=== PATIENT | female | born 1945 | race Caucasian/White ===

== ENCOUNTER 2017-02-26 16:22 | Emergency (ER) | payer MEDICARE, MEDICAID ==
[~2017-02-26] VITALS: Ht 157.5 cm; Wt 65.8 kg
[2017-02-26 16:27] VITALS: BP 139/91
--- NOTE | 2017-02-26 16:27 | NUR ---
LEFT SIDE FLANK PAIN, DIZZYNESS, BURNUNING ON URINATION x 4 DAYS
--- NOTE | 2017-02-26 16:41 | NUR ---
URINE SAMPLE COLLECTED SENT TO LAB
[2017-02-26 16:52] LABS: APPEARANCE,URINE CLEAR (CLEAR); BILIRUBIN,URINE NEGATIVE (NEGATIVE); BLOOD, URINE 1+ Ery/uL (NEGATIVE); COLOR,URINE YELLOW (YELLOW); KETONES,URINE NEGATIVE (NEGATIVE); LEUKOCYTE ESTERASE ,URINE NEGATIVE (NEGATIVE); NITRITE, URINE NEGATIVE (NEGATIVE); PH,URINE 5.5 (5.0-8.0); PROTEIN,URINE NEGATIVE (NEGATIVE); UGLUCOSE NEGATIVE (NEGATIVE); UROBILINOGEN,URINE 0.2 EU/dL (0.2)
[2017-02-26 17:03] LABS: BACTERIA,URINE Few /HPF (None Seen); SQUAMOUS EPITHELIAL CELL,UR Few /HPF (None Seen); WBC,URINE 0-2 /HPF (0-3)
[2017-02-26] MEDS ORDERED: CIPROFLOXACIN HCL 500 MG TABLET ONE (17:14)
[2017-02-26] MEDS ORDERED: IBUPROFEN 400 MG TABLET ONE (17:14)
[2017-02-26] MEDS ORDERED: CIPROFLOXACIN HCL 500 MG TABLET PO ONE (17:30)
[2017-02-26] MEDS ORDERED: IBUPROFEN 400 MG TABLET PO ONE (17:30)
== END 2017-02-26 17:16 | disposition home or self-care (01) ==
LOC: ER 16:24
DX: N39.0 Urinary tract infection, site not specified (principal); I10 Essential (primary) hypertension; F32.9 Major depressive disorder, single episode, unspecified; E03.9 Hypothyroidism, unspecified
CPT/HCPCS: 81001; 87086; 99284; A4606; 81000-TC; Z7610

== ENCOUNTER 2017-12-03 08:02 | Emergency (ER) | payer MEDICARE, MEDICAID ==
[~2017-12-03] VITALS: Ht 157.5 cm; Wt 67.6 kg
[2017-12-03 08:08] VITALS: BP 140/83
[2017-12-03] MEDS ORDERED: KETOROLAC TROMETHAMINE INJ 30 MG/ML VIAL ONE (10:12)
[2017-12-03] MEDS ORDERED: KETOROLAC TROMETHAMINE INJ 60 MG/2 ML VIAL IM ONE (10:30)
== END 2017-12-03 10:37 | disposition home or self-care (01) ==
LOC: ER 08:04
DX: M75.92 Shoulder lesion, unspecified, left shoulder (principal); F32.9 Major depressive disorder, single episode, unspecified; E03.9 Hypothyroidism, unspecified; Z98.890 Other specified postprocedural states
CPT/HCPCS: 73030; 96372; 99284; A4606; J1885; Z7610

== ENCOUNTER 2017-12-22 23:33 | Emergency (ER) | payer MEDICARE, MEDICAID ==
[~2017-12-22] VITALS: Ht 157.5 cm; Wt 65.8 kg
[2017-12-22 23:55] VITALS: BP 155/96
--- NOTE | 2017-12-23 00:30 | NUR ---
Patient given prescription for ibuprofen along w/ referrals for orthopaedics, PT rehab and discharge instructions. Patient refusing to sign discharge papers.
[2017-12-23] MEDS ORDERED: KETOROLAC TROMETHAMINE INJ 30 MG/ML VIAL ONE (00:54)
[2017-12-23] MEDS: KETOROLAC TROMETHAMINE INJ 60 MG/2 ML VIAL IM ONE ×2 (01:05→01:23)
== END 2017-12-23 00:34 | disposition home or self-care (01) ==
LOC: ER 23:35
DX: G89.29 Other chronic pain (principal); F32.9 Major depressive disorder, single episode, unspecified; E03.9 Hypothyroidism, unspecified
CPT/HCPCS: 96372; 99283; A4606; J1885; Z7610

== ENCOUNTER 2018-12-27 17:46 | Emergency (ER) | payer MEDICARE, MEDICAID ==
[~2018-12-27] VITALS: Ht 157.5 cm; Wt 68.0 kg
[2018-12-27 17:52] VITALS: BP 125/69
== END 2018-12-27 18:57 | disposition home or self-care (01) ==
LOC: ER 17:46
DX: S90.111A Contusion of right great toe without damage to nail, initial encounter (principal); F32.9 Major depressive disorder, single episode, unspecified; E03.9 Hypothyroidism, unspecified; Z98.890 Other specified postprocedural states; W20.8XXA Other cause of strike by thrown, projected or falling object, initial encounter; Y93.89 Activity, other specified; Y92.89 Other specified places as the place of occurrence of the external cause; Y99.8 Other external cause status
CPT/HCPCS: 73660-TC

== ENCOUNTER 2022-07-19 14:29 | Inpatient (IN) | payer MEDICARE, OTHER ==
[~2022-07-19] VITALS: Ht 157.5 cm; Wt 69.9 kg
--- NOTE | 2022-07-19 14:29 | NUR ---
BIB SELF FOR C/C DIZZINESS. A/O X 3
--- NOTE | 2022-07-19 15:49 | NUR ---
BLOOD SAMPLES OBTAINED
--- NOTE | 2022-07-19 15:55 | NUR ---
URINE SAMPLE OBTAINED
[2022-07-19] MEDS ORDERED: IV NS 0.9% 1,000 ML BAG IV ONE (16:30)
[2022-07-19 16:34] LABS: BASOPHILS # (AUTO) 0.1 K/uL (0.0-0.2); EOSINOPHILS % (AUTO) 1.7 % (0.0-6.0); HEMATOCRIT 48 % (33-45); LYMPHOCYTES # (AUTO) 1.7 K/uL (0.8-4.8); LYMPHOCYTES % (AUTO) 24.2 % (20.0-44.0); MEAN CORPUSCULAR HGB CONC 33 g/dl (31.0-36.0); MEAN CORPUSCULAR VOLUME 91 fL (82-100); MONOCYTES # (AUTO) 0.7 K/uL (0.1-1.30); MONOCYTES % (AUTO) 10.8 % (2.0-12.0); NEUTROPHILS # (AUTO) 4.3 K/uL (1.8-8.9); NEUTROPHILS % (AUTO) 62.3 % (43.0-81.0); PLATELET COUNT (AUTO) 276 K/uL (150-450); RED BLOOD CELL COUNT(AUTO) 5.27 MIL/uL (4.0-5.2); WHITE BLOOD COUNT (AUTO) 6.9 K/uL (4.3-11.0)
[2022-07-19 16:46] LABS: CALCIUM, SERUM 8.6 mg/dL (8.5-10.1); CARBON DIOXIDE 30 mmol/L (21-32); CHLORIDE 104 mmol/L (98-107); CREATININE 0.7 mg/dL (0.6-1.3); GLUCOSE 92 mg/dL (74-106); POTASSIUM 3.2 mmol/L (3.5-5.1); SODIUM SERUM 140 mmol/L (136-145); UREA NITROGEN, BLOOD 9 mg/dL (7-18)
[2022-07-19 17:14] LABS: BILIRUBIN,URINE NEGATIVE (NEGATIVE); COLOR,URINE YELLOW (YELLOW); LEUKOCYTE ESTERASE ,URINE NEGATIVE (NEGATIVE); NITRITE, URINE NEGATIVE (NEGATIVE); PROTEIN,URINE NEGATIVE (NEGATIVE); UGLUCOSE NEGATIVE (NEGATIVE); UROBILINOGEN,URINE 0.2 EU/dL (0.2)
[2022-07-19] MEDS ORDERED: POTASSIUM CHLORIDE 20 MEQ TAB.PRT.SR PO ONE ×2 (17:30→17:39)
[2022-07-19] MEDS ORDERED: DIAZEPAM 5 MG TABLET PO ONE (20:00)
[2022-07-19] MEDS ORDERED: DIAZEPAM 5 MG TABLET ONE (20:08)
--- NOTE | 2022-07-19 20:19 | NUR ---
COVID SWAB SENT TO LAB
--- NOTE | 2022-07-19 21:36 | NUR ---
report given to Kiara HINDS to continue care.
[2022-07-19 22:00] VITALS: BP_SYST 139; BP_SYST 148; BP_SYST 153; BP_DIAS 66; BP_DIAS 73; BP_DIAS 80
[2022-07-19] MEDS ORDERED: MORPHINE SULFATE INJ 2 MG/ML DISP.SYRIN IV PRN (22:00)
[2022-07-19] MEDS ORDERED: ACETAMINOPHEN 325 MG TABLET PO PRN (22:00)
[2022-07-19] MEDS ORDERED: ONDANSETRON HCL/PF 4 MG/2 ML VIAL IVP PRN (22:00)
--- NOTE | 2022-07-19 22:01 | NUR ---
wheeled patient via gurney accompanied by RN and emt in no distress. RN assigned at bedside to assume care.
--- NOTE | 2022-07-19 22:10 | NUR ---
DIRECT SALES PROFESSIONAL NOTES PT ABLE TO WALK FROM THE RNEY TO BED. A/OX4, ABLE TO MAKE NEEDS KNOWN. ORIENTED TO STAFF AND UNIT. PT ON RA TOLERATING WELL, BREATHING EVEN AND UNLABORED AT THIS TIME. PT IV ACCESS ON RIGHT FOREARM #20G SALINE LOCK, PATENT, INTACT AND FLUSHES WELL , WITH NO S/S OF INFILTRATION NOTED AT THIS TIME. PT HAS SOLDERING MACHINE OPERATOR IN PLACE WITH CURRENT READING OF SINUS RYTHM, HR 70 BPM. PT IS AMBULATORY WITH [facility], WALKS INDEPENDENTLY. SKIN IS INTACT, WARM AND DRY. SAFETY MEASURES INITIATED, BED PLACED IN LOWEST AND LOCKED POSITION. SIDE RAILS UP X 2. BEDSIDE TABLE AND CALL LIGHT IS EASY REACH. BED ALARM IS ON. WILL CONTINUE TO MONITOR PATIENT ACCORDINGLY.
[2022-07-19] MEDS: ENOXAPARIN SODIUM 40 MG/0.4 ML DISP.SYRIN SQ SCH (23:01)
[2022-07-19 23:35] VITALS: BP 148/66
[2022-07-19] MEDS: LORAZEPAM 1 MG TABLET PO PRN (23:42)
[2022-07-20] VITALS: BP 162/84
[2022-07-20] MEDS: hydrALAZINE HCL IV 20 MG VIAL IV PRN (01:06)
[2022-07-20 03:29] VITALS: BP_SYST 139; BP_SYST 148; BP_SYST 153; BP_DIAS 66; BP_DIAS 73; BP_DIAS 80
[2022-07-20 04:00] VITALS: BP 115/52
[2022-07-20 05:43] LABS: BASOPHILS % (AUTO) 0.6 % (0.0-2.0); EOSINOPHILS % (AUTO) 2.2 % (0.0-6.0); HEMATOCRIT 43 % (33-45); HEMOGLOBIN 14.6 g/dL (11.5-14.8); LYMPHOCYTES # (AUTO) 1.3 K/uL (0.8-4.8); LYMPHOCYTES % (AUTO) 21.9 % (20.0-44.0); MEAN CORPUSCULAR HGB CONC 34 g/dl (31.0-36.0); MEAN CORPUSCULAR VOLUME 91 fL (82-100); MONOCYTES # (AUTO) 0.9 K/uL (0.1-1.30); MONOCYTES % (AUTO) 15.2 % (2.0-12.0); NEUTROPHILS # (AUTO) 3.6 K/uL (1.8-8.9); NEUTROPHILS % (AUTO) 60.1 % (43.0-81.0); PLATELET COUNT (AUTO) 268 K/uL (150-450); RED BLOOD CELL COUNT(AUTO) 4.75 MIL/uL (4.0-5.2)
[2022-07-20 06:16] LABS: ALANINE AMINOTRANSFERASE 31 U/L (12-78); ALBUMIN 3.1 g/dL (3.4-5.0); ALKALINE PHOSPHATASE 71 U/L (46-116); ASPARTATE AMINOTRANSFERASE 24 U/L (15-37); BILIRUBIN,TOTAL 0.6 mg/dL (0.2-1.0); CALCIUM, SERUM 8.2 mg/dL (8.5-10.1); CARBON DIOXIDE 26 mmol/L (21-32); CHLORIDE 107 mmol/L (98-107); CREATININE 0.5 mg/dL (0.6-1.3); GLUCOSE 110 mg/dL (74-106); MAGNESIUM 2.3 mg/dL (1.8-2.4); POTASSIUM 3.3 mmol/L (3.5-5.1); SODIUM SERUM 140 mmol/L (136-145); TOTAL PROTEIN, SERUM 5.9 g/dL (6.4-8.2); UREA NITROGEN, BLOOD 7 mg/dL (7-18)
--- NOTE | 2022-07-20 06:38 | NUR ---
RN CLOSING NOTES PT IS DOZING INTERMITTENTLY. A/OX4, ABLE TO MAKE NEEDS KNOWN. PT ON RA TOLERATING WELL, BREATHING EVEN AND UNLABORED AT THIS TIME. PT IV ACCESS ON RIGHT FOREARM #20G SALINE LOCK, PATENT, INTACT AND FLUSHES WELL , WITH NO S/S OF INFILTRATION NOTED AT THIS TIME. PT HAS RESIDENTIAL DIRECT SUPPORT PROFESSIONAL IN PLACE WITH CURRENT READING OF SINUS KIERRA, HR 57 BPM. PT IS AMBULATORY WITH BRP, WALKS INDEPENDENTLY. MEDICATION ADMINISTERED ACCORDINGLY. SAFETY MEASURES INITIATED, BED PLACED IN LOWEST AND LOCKED POSITION. SIDE RAILS UP X 2. BEDSIDE TABLE AND CALL LIGHT IS EASY REACH. BED ALARM IS ON. WILL ENDORSE TO THE NEXT SHIFT FOR CONTINUITY OF CARE.
[2022-07-20] MEDS ORDERED: LEVOTHYROXINE SODIUM 175 MCG TABLET PO SCH (07:30)
--- NOTE | 2022-07-20 07:30 | NUR ---
CANE PUSHER OPENING NOTES RECEIVED PATIENT ON BED, AWAKE AND A/O X4. ON ROOM AIR TOLERATING WELL. NO SOB NOTED. NOT IN DISTRESS. WITH NO COMPLAINTS OF PAIN OR DISCOMFORT AT THIS TIME. WITH IV ACCESS AT THE RIGHT FOREARM G20 SALINE LOCKED, PATENT AND INTACT. ON TELE MONITOR CURRENTLY READING SINUS RHYTHM AT 61BPM. SAFETY MEASURES IN PLACED. CALL LIGHT WITHIN REACH. BED ON LOWEST LOCKED POSITION, SIDE RAILS UP X2. WILL CONTINUE TO MONITOR.
[2022-07-20] MEDS ORDERED: VITA-354 PO (08:00)
[2022-07-20] MEDS ORDERED: GABA-532 PO (08:00)
[2022-07-20] MEDS ORDERED: LEVO175T2 PO (08:00)
[2022-07-20] MEDS ORDERED: MULT-447 PO (08:00)
[2022-07-20 08:07] VITALS: BP 126/73
[2022-07-20] MEDS: CARVEDILOL 3.125 MG TABLET PO SCH ×2 (09:20→21:17)
[2022-07-20] MEDS: MULTIVIT W/MINERALS 1 TAB TABLET PO SCH (11:18)
[2022-07-20] MEDS ORDERED: POTASSIUM CHLORIDE 20 MEQ POWDER PACKET NG SCH (12:00)
[2022-07-20] MEDS: VITAMIN E 400 UNIT CAPSULE PO SCH (15:30)
[2022-07-20 16:18] VITALS: BP 158/98
--- NOTE | 2022-07-20 18:58 | NUR ---
MEDICAL TECHNOLOGIST BLOOD BANK CLOSING NOTES RECEIVED PATIENT ON BED, AWAKE AND A/O X4. ON ROOM AIR TOLERATING WELL. NO SOB NOTED. NOT IN DISTRESS. WITH NO COMPLAINTS OF PAIN OR DISCOMFORT AT THIS TIME. WITH IV ACCESS AT THE RIGHT FOREARM G20 SALINE LOCKED, PATENT AND INTACT. ON TELE MONITOR CURRENTLY READING SINUS RHYTHM AT 62BPM. SAFETY MEASURES IN PLACED. DUE MEDS GIVEN. CALL LIGHT WITHIN REACH. BED ON LOWEST LOCKED POSITION, SIDE RAILS UP X2. WILL ENDORSE TO NEXT SHIFT FOR VIC.
--- NOTE | 2022-07-20 19:00 | NUR ---
LABORATORY AIDE OPENING NOTE PATIENT IS RESTING IN BED. SHE IS ALERT AND ORIENTED, AO X 4. SHE IS ON RA, TOLERATED WELL. NO S/S OF DISTRESS OR SOB. PT DENIES OF HAVING PAIN AT THIS MOMENT. IV ACCESS IS AT HER R FA, #20G, SL; FLUSHED WELL. IV SITE IS PATENT AND INTACT. PATIENT IS ON EXTERNAL NUCLEAR FUELS RESEARCH ENGINEER, ON THE MONITOR, HER HEART RHYTHM IS SR WITH HR AT 60S. SAFETY MEASURES ARE IN PLACED: BED IN LOWEST AND LOCKED POSITION; SIDE RAILS UP X 2; CALL LIGHT AND TABLE ARE WITHIN REACH. WILL CONTINUE MONITOR THE PATIENT AND PROVIDE THE CARE PT NEEDS.
[2022-07-20 20:00] VITALS: BP 153/86
[2022-07-20] MEDS: ENOXAPARIN SODIUM 40 MG/0.4 ML DISP.SYRIN SQ SCH (21:21)
[2022-07-20] MEDS ORDERED: GABAPENTIN 100 MG CAPSULE PO SCH (22:00)
[2022-07-20] MEDS: LORAZEPAM 1 MG TABLET PO PRN (23:47)
--- NOTE | 2022-07-20 23:50 | NUR ---
LINUX PROGRAMMER NOTE PATIENT STATES SHE IS FEELING ANXIOUS AND UNABLE TO SLEEP. PRN ORAL MEDICATION, ATIVAN, GIVEN TO THE PT PER MD ORDER.
[2022-07-21] VITALS: BP 160/81
[2022-07-21] MEDS: hydrALAZINE HCL IV 20 MG VIAL IV PRN (00:44)
--- NOTE | 2022-07-21 00:45 | NUR ---
GLOVE WRAPPER NOTE PATIENT'S BP IS 170/80, HR IS 61. GET PRN MEDICATION, HYDRALAZINE IV MEDICATION READY FOR THE PT; PT REFUSED. EDUCATED THE PT THE RISK OF HAVING HIGH BP, PT SAID " EVEN I TAKE THE MEDICATION, BECAUSE I HAVE STRESS, MY BP IS NOT GOING TO BE LOW". PT ALSO STATED SHE WANTED TO TALK DAIRY TECHNOLOGIST. NOTIFIED DAIRY TECHNOLOGIST, WAS TOLD THAT SHE CAN DO NOTHING IF PT THINKS THAT WAY. CHARGE NURSE, OBED, TONYA.
--- NOTE | 2022-07-21 00:45 | NUR ---
ZIGZAG APPLIQUER NOTE PT'S IV ACCESS HAS REDNESS, NOTIFIED PT THAT NEED TO HAVE NEW IV ACCESS. PT REFUSED.
--- NOTE | 2022-07-21 01:00 | NUR ---
ELECTRIC MOTOR REBUILDER NOTE PRN IV MEDICATION, HYDRALAZINE, WASTED DUE TO PT REFUSED. GUZMAN GONZALEZ, WITNESSED.
--- NOTE | 2022-07-21 01:25 | NUR ---
INSTRUMENT LENS INSPECTOR NOTE TEXT DR. JOHNSON TO GET PO MEDICATION, HYDRALAZINE, FOR THIS PT. ORDER RECEIVED. CHARGE NURSE, OBED, NOTIFIED.
[2022-07-21] MEDS ORDERED: hydrALAZINE HCL 25 MG TABLET PO PRN (01:30)
--- NOTE | 2022-07-21 01:45 | NUR ---
PROTECTION OFFICER NOTE PO PRN MEDICATION FOR BP> 160, HYDRALAZINE, GIVEN TO THE PT. CHARGE NURSE, OBED, NOTIFIED.
[2022-07-21 04:00] VITALS: BP 152/75
[2022-07-21 06:31] LABS: BASOPHILS # (AUTO) 0.1 K/uL (0.0-0.2); BASOPHILS % (AUTO) 0.9 % (0.0-2.0); EOSINOPHILS % (AUTO) 2.2 % (0.0-6.0); HEMATOCRIT 44 % (33-45); HEMOGLOBIN 14.4 g/dL (11.5-14.8); LYMPHOCYTES # (AUTO) 1.3 K/uL (0.8-4.8); LYMPHOCYTES % (AUTO) 20.2 % (20.0-44.0); MEAN CORPUSCULAR HGB CONC 33 g/dl (31.0-36.0); MEAN CORPUSCULAR VOLUME 92 fL (82-100); MONOCYTES # (AUTO) 0.7 K/uL (0.1-1.30); NEUTROPHILS # (AUTO) 4.3 K/uL (1.8-8.9); NEUTROPHILS % (AUTO) 65.7 % (43.0-81.0); PLATELET COUNT (AUTO) 243 K/uL (150-450); RED BLOOD CELL COUNT(AUTO) 4.77 MIL/uL (4.0-5.2); WHITE BLOOD COUNT (AUTO) 6.5 K/uL (4.3-11.0)
[2022-07-21 07:08] LABS: CALCIUM, SERUM 7.9 mg/dL (8.5-10.1); CARBON DIOXIDE 27 mmol/L (21-32); CHLORIDE 105 mmol/L (98-107); CREATININE 0.5 mg/dL (0.6-1.3); GLUCOSE 97 mg/dL (74-106); MAGNESIUM 2.2 mg/dL (1.8-2.4); PHOSPHORUS 3.2 mg/dL (2.5-4.9); POTASSIUM 3.2 mmol/L (3.5-5.1); SODIUM SERUM 140 mmol/L (136-145); UREA NITROGEN, BLOOD 8 mg/dL (7-18)
[2022-07-21 07:28] LABS: T4 (THYROXINE) 5.3 ug/dL (4.7-13.3); THYROID STIMULATING HORMONE 32.323 uIU/mL (0.358-3.74)
[2022-07-21] MEDS ORDERED: LEVOTHYROXINE SODIUM 175 MCG TABLET PO SCH (07:30)
--- NOTE | 2022-07-21 07:30 | NUR ---
CIVIL ENGINEERING DRAFTER NOTES PT AWAKE, ALERT AND ORIENTED, SITTING IN BED, EATING BREAKFAST, NO COMPLAINT AT THIS TIME, BREATHING PATTERN NORMAL, CALL LIGHT WITHIN REACH.
--- NOTE | 2022-07-21 07:51 | NUR ---
AUDIO/VIDEO ENGINEER CLOSING NOTE PATIENT IS RESTING IN BED. SHE IS ALERT AND ORIENTED, AO X 4. SHE IS ON RA, TOLERATED WELL. NO S/S OF DISTRESS OR SOB. PT DENIES OF HAVING PAIN AT THIS MOMENT. IV ACCESS IS AT HER R FA, #20G, SL; IV SITE HAS REDNESS, HOWEVER, PT REFUSED TO REMOVED THE IV SITE FROM HER.. PATIENT IS ON EXTERNAL FITTER TYPE BAR AND SEGMENT, ON THE MONITOR, HER HEART RHYTHM IS SR WITH HR AT 60S. SAFETY MEASURES ARE IN PLACED: BED IN LOWEST AND LOCKED POSITION; SIDE RAILS UP X 2; CALL LIGHT AND TABLE ARE WITHIN REACH. ENDORSED THE NEXT SHIFT NURSE FOR CONTINUING PT CARE.
[2022-07-21 08:00] VITALS: BP 137/69
[2022-07-21] MEDS: VITAMIN E 400 UNIT CAPSULE PO SCH (08:29)
[2022-07-21] MEDS: MULTIVIT W/MINERALS 1 TAB TABLET PO SCH ×2 (08:30→08:36)
[2022-07-21] MEDS: CARVEDILOL 3.125 MG TABLET PO SCH (08:30)
[2022-07-21] MEDS ORDERED: VALSARTAN 80 MG TABLET PO SCH (09:00)
[2022-07-21] MEDS ORDERED: CARV3.122 PO (10:47)
[2022-07-21] MEDS ORDERED: VALS80TA31 PO (10:47)
[2022-07-21] MEDS ORDERED: POTASSIUM CHLORIDE 20 MEQ TAB.PRT.SR PO ONE (11:00)
[2022-07-21] MEDS ORDERED: IOHEXOL-350 100 ML VIAL IV ONE (11:13)
[2022-07-21] MEDS ORDERED: IV NS 0.9% 250 ML IV ONE (11:14)
[2022-07-21] MEDS ORDERED: CT SWABBABLE VALVE TRANS SET 1 EA INFUS.SET MC ONE (11:14)
[2022-07-21] MEDS ORDERED: NITROGLYCERIN 0.4 MG/TAB BOTTLE ONE (11:14)
[2022-07-21] MEDS ORDERED: METOPROLOL TARTRATE INJ 5 MG/5 ML AMPUL ONE (11:23)
[2022-07-21 11:30] VITALS: BP 139/70
[2022-07-21] MEDS ORDERED: NITROGLYCERIN 0.4 MG/TAB BOTTLE SL ONE (11:30)
[2022-07-21] MEDS ORDERED: METOPROLOL TARTRATE INJ 5 MG/5 ML AMPUL IVP PRN (11:30)
--- NOTE | 2022-07-21 11:51 | NUR ---
RN NOTES CTCA PROCEDURE WELL TOLERATED BY THE PT. PT IS AAOX4, NOT IN RESPIRATORY DISTRESS, V/S STABLE, KEPT RESTED AND COMFORTABLE. REPORT GIVEN TO GUZMAN LYLES FOR VIC.
--- NOTE | 2022-07-21 12:02 | NUR ---
POOL FINISHER NOTES PT COMPLETED CTCA, TOLERATED WELL, SEEN BY DR. REED TODAY, PLAN OF CARE DISCUSSED WITH PT, VERBALIZED UNDERSTANDING.
--- NOTE | 2022-07-21 15:25 | NUR ---
HYDRAULIC ROCKBREAKER OPERATOR NOTES PT AWAKE, ALERT AND ORIENTED, DENIES CHEST PAIN, NO COMPLAINT OF PAIN OR ANY DISCOMFORT, ON ROOM AIR, NOT IN DISTRESS, AMBULATES INSIDE HER ROOM WITH STEADY GAIT, SEEN BY DR. REED TODAY, COMPLETED CTCA WITH NEGATIVE RESULTS, CLEARED BY CARDIOLOGY, DISCHARGE ORDER GIVEN BY DR. REED, DISCHARGE AND MEDICATION INSTRUCTIONS PROVIDED TO PT, VERBALIZED UNDERSTANDING, BELONGINGS ACCOUNTED FOR, NEW PRESCRIPTIONS SENT ELECTRONICALLY BY MD TO PT'S PREFERRED PHARMACY, PICKED UP BY HER SON, PT REFUSED WHEELCHAIR ASSISTANCE, ASSISTED TO HOSPITAL LOBBY, LEFT IN STABLE CONDITION.
[2022-07-21 16:00] VITALS: BP 105/62
[2022-07-21] MEDS ORDERED: AMITRIPTYLINE HCL 25 MG TABLET PO SCH (22:00)
== END 2022-07-21 15:25 | disposition home or self-care (01) | DRG 206 ==
LOC: ER 14:32 → TELE 21:30
PROVIDERS: ADMIT Internal Medicine; ATTEND Nurse Practitioner Acute Care
DX: M94.0 Chondrocostal junction syndrome [Tietze] (principal); F41.9 Anxiety disorder, unspecified; E87.6 Hypokalemia; E03.9 Hypothyroidism, unspecified; I10 Essential (primary) hypertension; Z88.0 Allergy status to penicillin; Z20.822 Contact with and (suspected) exposure to COVID-19; R00.2 Palpitations; F41.0 Panic disorder [episodic paroxysmal anxiety]
CPT/HCPCS: 36415; 71045-TC; 75574; 80048-TC; 80053-TC; 82962-TC; 83735-TC; 84100-TC; 84436-TC; 84439-TC; 84443-TC; 84481; 84484-TC; 85025-TC; 87081-TC; 93307-TC; C9803; G0378; J0360; J1650; J3490; J7030; J7050; Q9967

== ENCOUNTER 2024-01-08 16:50 | Emergency (ER) | payer MEDICARE, OTHER ==
[~2024-01-08] VITALS: Ht 157.5 cm; Wt 67.1 kg
[~2024-01-08 16:50] MED LIST: CARV3.122 PO; GABA-532 PO; LEVO175T2 PO; MULT-447 PO; VALS80TA31 PO; VITA-354 PO
[2024-01-08 17:20] VITALS: BP 135/84; TEMP 98.1
[2024-01-08 17:43] VITALS: O2SAT 100
== END 2024-01-08 17:43 | disposition home or self-care (01) ==
LOC: ER 16:59
DX: S60.022A Contusion of left index finger without damage to nail, initial encounter (principal); E03.9 Hypothyroidism, unspecified; Z88.0 Allergy status to penicillin; Z91.048 Other nonmedicinal substance allergy status; W45.8XXA Other foreign body or object entering through skin, initial encounter; Y93.89 Activity, other specified; Y92.89 Other specified places as the place of occurrence of the external cause; Y99.8 Other external cause status

== ENCOUNTER 2024-09-17 18:18 | Emergency (ER) | payer BC, MEDICAID ==
[~2024-09-17] VITALS: Ht 157.5 cm; Wt 68.0 kg
[2024-09-17] MEDS ORDERED: ONDANSETRON HCL/PF 4 MG/2 ML VIAL ONE (18:52)
[2024-09-17] MEDS ORDERED: MORPHINE SULFATE INJ 2 MG/ML DISP.SYRIN ONE (18:53)
[2024-09-17] MEDS ORDERED: FAMOTIDINE/PF INJ 20 MG/2 ML VIAL IV ONE (18:54)
[2024-09-17 19:07] LABS: BASOPHILS # (AUTO) 0.1 K/uL (0.0-0.2); BASOPHILS % (AUTO) 1.2 % (0.0-2.0); EOSINOPHILS # (AUTO) 0.2 K/uL (0.0-0.7); EOSINOPHILS % (AUTO) 2.4 % (0.0-6.0); HEMATOCRIT 43 % (33-45); LYMPHOCYTES # (AUTO) 1.2 K/uL (0.8-4.8); LYMPHOCYTES % (AUTO) 16.8 % (20.0-44.0); MEAN CORPUSCULAR HEMOGLOBIN 31 PG (26.0-33.0); MEAN CORPUSCULAR HGB CONC 35 g/dl (31.0-36.0); MEAN CORPUSCULAR VOLUME 91 fL (82-100); MONOCYTES # (AUTO) 0.7 K/uL (0.1-1.30); MONOCYTES % (AUTO) 9.7 % (2.0-12.0); NEUTROPHILS # (AUTO) 5.2 K/uL (1.8-8.9); NEUTROPHILS % (AUTO) 69.9 % (43.0-81.0); PLATELET COUNT (AUTO) 227 K/uL (150-450); RED BLOOD CELL COUNT(AUTO) 4.78 MIL/uL (4.0-5.2); RED CELL DISTRIBUTION WIDTH 13.5 % (11.5-15.0); WHITE BLOOD COUNT (AUTO) 7.4 K/uL (4.3-11.0)
[2024-09-17] MEDS: IV NS 0.9% 1,000 ML BAG IV ONE (19:07)
[2024-09-17] MEDS: MORPHINE SULFATE INJ 2 MG/ML DISP.SYRIN IV ONE (19:07)
[2024-09-17] MEDS: FAMOTIDINE/PF INJ 20 MG/2 ML VIAL IV ONE (19:08)
[2024-09-17] MEDS: ONDANSETRON HCL/PF 4 MG/2 ML VIAL IVP ONE (19:08)
[2024-09-17 19:17] LABS: CALCIUM, SERUM 9.1 mg/dL (8.5-10.1); CARBON DIOXIDE 28 mmol/L (21-32); CHLORIDE 104 mmol/L (98-107); CREATININE 0.6 mg/dL (0.6-1.3); GLUCOSE 130 mg/dL (74-106); POTASSIUM 3.7 mmol/L (3.5-5.1); SODIUM SERUM 139 mmol/L (136-145); UREA NITROGEN, BLOOD 11 mg/dL (7-18)
[2024-09-17 19:19] LABS: APPEARANCE,URINE SLIGHTLY CLOUDY (CLEAR); BILIRUBIN,URINE NEGATIVE (NEGATIVE); BLOOD, URINE NEGATIVE Ery/uL (NEGATIVE); COLOR,URINE YELLOW (YELLOW); KETONES,URINE NEGATIVE (NEGATIVE); LEUKOCYTE ESTERASE ,URINE NEGATIVE (NEGATIVE); NITRITE, URINE POSITIVE (NEGATIVE); PH,URINE 5.5 (5.0-8.0); PROTEIN,URINE NEGATIVE (NEGATIVE); UGLUCOSE NEGATIVE (NEGATIVE); UROBILINOGEN,URINE 0.2 EU/dL (0.2)
[2024-09-17 19:23] LABS: ALANINE AMINOTRANSFERASE 57 U/L (12-78); ALBUMIN 3.6 g/dL (3.4-5.0); ALKALINE PHOSPHATASE 108 U/L (46-116); ASPARTATE AMINOTRANSFERASE 58 U/L (15-37); BILIRUBIN,DIRECT 0.2 mg/dL (0.0-0.2); BILIRUBIN,TOTAL 0.5 mg/dL (0.2-1.0); LIPASE 30 U/L (16-77); TOTAL PROTEIN, SERUM 7.1 g/dL (6.4-8.2)
[2024-09-17 19:44] LABS: ADD URINE CULTURE YES; BACTERIA,URINE 3+ /HPF (None Seen); RBC,URINE 0-2 /HPF (0-2)
[2024-09-17] MEDS ORDERED: NITR100C6 PO (21:25)
[2024-09-17] MEDS ORDERED: NITROFURANTOIN/MONOHYDRATE MACROCRYSTALS 100 MG CAPSULE ONE (21:57)
[2024-09-17] MEDS: NITROFURANTOIN/MONOHYDRATE MACROCRYSTALS 100 MG CAPSULE PO ONE (21:59)
[2024-09-17 22:13] VITALS: BP 136/77; TEMP 97.9; O2SAT 99
== END 2024-09-17 22:13 | disposition home or self-care (01) ==
LOC: ER 18:18
DX: N39.0 Urinary tract infection, site not specified (principal); I10 Essential (primary) hypertension; E03.9 Hypothyroidism, unspecified; Z79.899 Other long term (current) drug therapy; Z88.0 Allergy status to penicillin
CPT/HCPCS: 99285; 96374; 96361; 96375; 93005; 71045; 74176; 85025; 80048; 87086; 83690; 80076; 81001; 36415; 84484; J1308; J2405; J7030; J2270

== ENCOUNTER 2025-01-18 14:27 | Emergency (ER) | payer OTHER, MEDICAID ==
[~2025-01-18] VITALS: Ht 157.5 cm; Wt 70.3 kg
[~2025-01-18 14:27] MED LIST changes: +NITR100C6 PO
[2025-01-18] MEDS ORDERED: METO25TA4 PO (15:22)
[2025-01-18] MEDS ORDERED: ERGO500093 PO (15:22)
[2025-01-18] MEDS ORDERED: LEVO125T PO (15:22)
[2025-01-18] MEDS ORDERED: ESTR20VI IM (15:23)
[2025-01-18] MEDS ORDERED: ONDANSETRON HCL/PF 4 MG/2 ML VIAL ONE (15:25)
[2025-01-18] MEDS: IV NS 0.9% 500 ML BAG IV ONE (15:26)
[2025-01-18] MEDS ORDERED: MORPHINE SULFATE INJ 4 MG/ML DISP.SYRIN ONE (15:26)
[2025-01-18 15:34] LABS: PLATELET COUNT (AUTO) 228 K/uL (150-450); RED BLOOD CELL COUNT(AUTO) 4.71 MIL/uL (4.0-5.2); RED CELL DISTRIBUTION WIDTH 13.9 % (11.5-15.0); WHITE BLOOD COUNT (AUTO) 5.8 K/uL (4.3-11.0)
[2025-01-18] MEDS: ONDANSETRON HCL/PF 4 MG/2 ML VIAL IVP ONE (15:34)
[2025-01-18] MEDS: MORPHINE SULFATE INJ 2 MG/ML DISP.SYRIN IV ONE (15:36)
[2025-01-18 15:44] LABS: CALCIUM, SERUM 8.6 mg/dL (8.5-10.1); CREATININE 0.6 mg/dL (0.6-1.3); SODIUM SERUM 142.0 mmol/L (136-145); UREA NITROGEN, BLOOD 8.0 mg/dL (7-18)
[2025-01-18 18:05] LABS: APPEARANCE,URINE CLEAR (CLEAR); BLOOD, URINE Negative Ery/uL (NEGATIVE); LEUKOCYTE ESTERASE ,URINE Negative (NEGATIVE); NITRITE, URINE NEGATIVE (NEGATIVE); UGLUCOSE Negative (NEGATIVE)
[2025-01-18 19:40] VITALS: BP 135/73; TEMP 97.9; O2SAT 98
== END 2025-01-18 21:06 | disposition short-term general hospital (02) ==
LOC: ER 14:40
DX: M54.16 Radiculopathy, lumbar region (principal); G89.29 Other chronic pain; E03.9 Hypothyroidism, unspecified; Z79.890 Hormone replacement therapy; Z79.899 Other long term (current) drug therapy; Z88.0 Allergy status to penicillin; W18.39XA Other fall on same level, initial encounter; Y93.89 Activity, other specified; Y92.89 Other specified places as the place of occurrence of the external cause; Y99.8 Other external cause status
CPT/HCPCS: 99285; 96374; 96361; 96375; 72170; 73552; 85025; 80048; 81003; 36415; J2270; J2405; J7040